=== PATIENT | female | born 1975 | race African-American/Black ===

== ENCOUNTER 2017-08-18 09:29 | Emergency (ER) | payer OTHER ==
--- NOTE | 2017-08-18 10:10 | ER Document Report ---
ED General - General Chief Complaint: Vag Bleeding, +preg <12wks Stated Complaint: VAGINAL BLEEDING Time Seen by Provider: 08/18/17 09:55 Mode of Arrival: Ambulatory Information source: Patient Notes: 41-year-old female 3 para 2 is approximately 7 weeks 6 days per ultrasound on August 12 presents with complaints of vaginal spotting. Patient denies any heavy bleeding or clots denies any abdominal pain notes symptoms started this morning TRAVEL OUTSIDE OF THE [place] IN LAST 30 DAYS: No - HPI Onset: Just prior to arrival Onset/Duration: Sudden Quality of pain: No pain Severity: Mild Pain Level: Denies Associated symptoms: Other Exacerbated by: Denies Relieved by: Denies Similar symptoms previously: No Recently seen / treated by doctor: No - Related Data Allergies/Adverse Reactions: No Known Allergies Allergy (Verified 12/09/14 11:45) Past Medical History - Social History Smoking Status: Never Smoker Cigarette use (# per day): No Chew tobacco use (# tins/day): No Smoking Education Provided: No Family History: Reviewed & Not Pertinent. denies: CAD Neurological Medical History: Reports: Hx Migraine Renal/ Medical History: Reports: Hx Ovarian Cysts - Immunizations Hx Diphtheria, Pertussis, Tetanus Vaccination: Yes Review of Systems - Review of Systems Notes: REVIEW OF SYSTEMS: CONSTITUTIONAL : Denies fever, chills, or sweats. Denies recent illness. EENT: Denies eye, ear, throat, or mouth pain or symptoms. Denies nasal or sinus congestion or discharge. Denies throat, tongue, or mouth swelling or difficulty swallowing. CARDIOVASCULAR: Denies chest pain. Denies palpitations or racing or irregular heart beat. Denies ankle edema. RESPIRATORY: Denies cough, cold, or chest congestion. Denies shortness of breath, difficulty breathing, or wheezing. GASTROINTESTINAL: Denies abdominal pain or distention. Denies nausea, vomiting , or diarrhea. Denies blood in vomitus, stools, or per rectum. Denies black, tarry stools. Denies constipation. GENITOURINARY: Denies difficulty urinating, painful urination, burning, frequency, blood in urine, or discharge. FEMALE GENITOURINARY: Admits to vaginal bleeding MUSCULOSKELETAL: Denies back or neck pain or stiffness. Denies joint pain or swelling. SKIN: Denies rash, lesions or sores. HEMATOLOGIC : Denies easy bruising or bleeding. LYMPHATIC: Denies swollen, enlarged glands. NEUROLOGICAL: Denies confusion or altered mental status. Denies passing out or loss of consciousness. Denies dizziness or lightheadedness. Denies headache. Denies weakness or paralysis or loss of use of either side. Denies problems with gait or speech. Denies sensory loss, numbness, or tingling. Denies seizures. PSYCHIATRIC: Denies anxiety or stress. Denies depression, suicidal ideation, or homicidal ideation. ALL OTHER SYSTEMS REVIEWED AND NEGATIVE. PHYSICAL EXAMINATION: GENERAL: Well-appearing, well-nourished and in no acute distress. HEAD: Atraumatic, normocephalic. EYES: Pupils equal round and reactive to light, extraocular movements intact, conjunctiva are normal. ENT: Nares patent, oropharynx clear without exudates. Moist mucous membranes. NECK: Normal range of motion, supple without lymphadenopathy LUNGS: Breath sounds clear to auscultation bilaterally and equal. No wheezes rales or rhonchi. HEART: Regular rate and rhythm without murmurs ABDOMEN: Soft, nontender, nondistended abdomen. No guarding, no rebound. No masses appreciated. Female : deferred Musculoskeletal: Normal range of motion, no pitting or edema. No cyanosis. NEUROLOGICAL: Cranial nerves grossly intact. Normal speech, normal gait. Normal sensory, motor exams PSYCH: Normal mood, normal affect. SKIN: Warm, Dry, normal turgor, no rashes or lesions noted. Dictation was performed using [employer] voice recognition software Physical Exam - Vital signs Vitals: Temp Pulse Resp BP Pulse Ox 98.8 F 84 20 130/86 H 98 08/18/17 09:49 08/18/17 09:49 08/18/17 09:49 08/18/17 09:49 08/18/17 09:49 Course - Re-evaluation Re-evalutation: 08/18/17 10:09 Patient is unsure of her blood type but has never received RhoGam, lab work imaging pending 08/18/17 15:03 Patient's lab work and ultrasound is consistent with a 7 week 6 day , small subchorionic bleed is noted the cervix is closed, heartbeat is noted as well. Findings were provided to the patient and she is very happy with this. I have given her very strict return precautions and described to her that this is still a threatened miscarriage After performing a Medical Screening Examination, I estimate there is LOW risk for ACUTE APPENDICITIS, BOWEL OBSTRUCTION, ACUTE CHOLECYSTITIS, PERFORATED DIVERTICULITIS, INCARCERATED HERNIA, PANCREATITIS, PELVIC INFLAMMATORY DISEASE, PERFORATED ULCER, ECTOPIC , or TUBO-OVARIAN ABSCESS, thus I consider the discharge disposition reasonable. Also, there is no evidence or peritonitis , sepsis, or toxicity. I have reevaluated this patient multiple times and no significant life threatening changes are noted. The patient and I have discussed the diagnosis and risks, and we agree with discharging home with close follow-up with the understanding that symptoms and presentations can change. We also discussed returning to the Emergency Department immediately if new or worsening symptoms occur. We have discussed the symptoms which are most concerning (e.g., bloody stool, fever, changing or worsening pain, vomiting) that necessitate immediate return. - Vital Signs Vital signs: Temp Pulse Resp BP Pulse Ox 98.7 F 88 16 120/75 98 08/18/17 12:39 08/18/17 12:39 08/18/17 12:39 08/18/17 12:39 08/18/17 12:39 - Laboratory Result Diagrams: 08/18/17 10:03 08/18/17 10:03 Laboratory results interpreted by me: 08/18/17 08/18/17 08/18/17 10:03 10:03 10:03 Hgb 11.1 L Hct 34.1 L MCH 26.8 L RDW 17.9 H Sodium 136.2 L Carbon Dioxide 20 L Beta HCG, Quant 784415.00 H Urine Protein 30 H Urine Urobilinogen 4.0 H Urine Ascorbic Acid 40 H - Diagnostic Test Radiology reviewed: Image reviewed - Ultrasound transvaginal pelvis consistent with 7 week 6 day , Reports reviewed Discharge - Discharge Clinical Impression: Threatened miscarriage in early Condition: Stable Disposition: HOME, SELF-CARE Instructions: Threatened Miscarriage ([facility]) Additional Instructions: Follow up with your physician tomorrow for further care or return to the ED IMMEDIATELY if symptoms worsen or new concerns occur. If you cannot afford to follow up with your primary care physician a list of low cost clinics have been provided at the end of your discharge papers as well. Prescriptions: Metoclopramide HCl [Reglan 10 mg Tablet] 1 tab PO Q6 #25 tablet
[2017-08-18 10:23] LABS: ABSOLUTE BASOPHILS # (AUTO) 0.1 10^3/uL (0.0-0.2); ABSOLUTE EOSINOPHILS # (AUTO) 0.1 10^3/uL (0.0-0.6); ABSOLUTE LYMPHOCYTES (AUTO) 1.8 10^3/uL (0.5-4.7); ABSOLUTE MONOCYTES (AUTO) 0.5 10^3/uL (0.1-1.4); ABSOLUTE NEUT (AUTO) 5.2 10^3/uL (1.7-8.2); BASOPHILS % (AUTO) 0.7 % (0-2); EOSINOPHILS % (AUTO) 0.7 % (0-6); HEMATOCRIT 34.1 % (36.0-47.0); HEMOGLOBIN 11.1 g/dL (12.0-15.5); LYMPHOCYTES % (AUTO) 23.8 % (13-45); MEAN CORPUSCULAR HEMOGLOBIN 26.8 pg (27.0-33.4); MEAN CORPUSCULAR HGB CONC 32.5 g/dL (32.0-36.0); MEAN CORPUSCULAR VOLUME 82 fl (80-97); PLATELET COUNT 371 10^3/uL (150-450); RED BLOOD COUNT 4.14 10^6/uL (3.72-5.28); RED CELL DISTRIBUTION WIDTH 17.9 % (11.5-14.0); SEGMENTED NEUTROPHILS % (AUTO) 67.8 % (42-78); TOTAL CELLS COUNTED % (AUTO) 100 %; WHITE BLOOD COUNT 7.7 10^3/uL (4.0-10.5)
[2017-08-18 10:37] LABS: ALANINE AMINOTRANSFERASE 21 U/L (9-52); ALBUMIN 4.1 g/dL (3.5-5.0); ALKALINE PHOSPHATASE 57 U/L (38-126); ANION GAP 11 (5-19); ASPARTATE AMINO TRANSFERASE 16 U/L (14-36); BILIRUBIN,DIRECT 0.3 mg/dL (0.0-0.4); BILIRUBIN,TOTAL 0.3 mg/dL (0.2-1.3); BLOOD UREA NITROGEN 9 mg/dL (7-20); CALCIUM 10.2 mg/dL (8.4-10.2); CARBON DIOXIDE 20 mmol/L (22-30); CHLORIDE 105 mmol/L (98-107); GLUCOSE 101 mg/dL (75-110); POTASSIUM 3.9 mmol/L (3.6-5.0); SODIUM 136.2 mmol/L (137-145); TOTAL PROTEIN 7.2 g/dL (6.3-8.2)
[2017-08-18 10:58] LABS: APPEARANCE,URINE SLIGHTLY-CLOUDY; BILIRUBIN,URINE NEGATIVE (NEGATIVE); GLUCOSE, URINE NEGATIVE (NEGATIVE); KETONES,URINE NEGATIVE (NEGATIVE); LEUKOCYTE ESTERASE,URINE NEGATIVE (NEGATIVE); NITRITE,URINE NEGATIVE (NEGATIVE); PROTEIN,URINE 30 mg/dL (NEGATIVE); URINE SPECIFIC GRAVITY 1.029
[2017-08-18 11:00] LABS: COLOR,URINE DARK YELLOW
--- NOTE | 2017-08-18 12:23 | RADIOLOGY REPORT (SQ) ---
EXAM DESCRIPTION: U/S OB TRANSVAGINAL W/O DOP COMPLETED DATE/TIME: 08/18/2017 12:15 pm REASON FOR STUDY: vag bleed + preg COMPARISON: None. TECHNIQUE: Transvaginal static and realtime grayscale images acquired of the pelvis. Additional annamarie cted spectral and color Doppler images recorded. All images stored on PACs. bHCG: Not available. LIMITATIONS: None. FINDINGS: FETUS: Living intrauterine . EGA: 7 weeks 6 days PATRICIA: 03/31/2018 FHR: 152 beats per minute. SUBCHORIONIC BLEED: Yes. SIZE OF BLEED: 1.7 x 2.1 x 2.1 cm UTERUS: No masses. No anomalies. CERVICAL LENGTH: 2.7 cm. Closed. RIGHT ADNEXA: Normal ovary with normal vascular flow. No adnexal free fluid. Simple cyst(s) measuring 4.5 cm. LEFT ADNEXA: Ovary not identified. No adnexal free fluid. No adnexal masses. FREE FLUID: None. OTHER: No other significant finding. IMPRESSION: LIVING INTRAUTERINE . EGA 7 weeks 6 days. Small subchronic hemorrhage. Trimester of : First - 0 to 13 weeks. TECHNICAL DOCUMENTATION: JOB ID: [id number] [employer]- All Rights Reserved Reading location - IP/workstation name: [email or web address]
[2017-08-18 12:40] VITALS: BP 120/75
== END 2017-08-18 12:40 | disposition home or self-care (01) ==
LOC: ER 09:29
DX: O20.0 Threatened abortion (principal); Z3A.00 Weeks of gestation of pregnancy not specified
CPT/HCPCS: 36415; 76817; 80053; 81001; 84702; 85025; 86900; 86901; 99284

== ENCOUNTER 2017-10-26 10:06 | Emergency (ER) | payer SELFPAY ==
--- NOTE | 2017-10-26 10:29 | ER Document Report ---
ED Medical Screen (RME) - General Chief Complaint: Shortness Of Breath Stated Complaint: SHORTNESS OF BREATH Time Seen by Provider: 10/26/17 10:25 Notes: 42-year-old female patient approximately 18 weeks . Been having increased shortness of breath over the last couple weeks. Intermittent palpitations. Feels like her heart is racing and she cannot catch her breath. Denies any leg pain. Denies any lower extremity edema. Not on any medications other than vitamins. Never had a blood clot. No prior complications with previous pregnancies. I have greeted and performed a rapid initial assessment of this patient. A comprehensive ED assessment and evaluation of the patient, analysis of test results and completion of the medical decision making process will be conducted by additional ED providers. TRAVEL OUTSIDE OF THE [place] IN LAST 30 DAYS: No - Related Data Allergies/Adverse Reactions: No Known Allergies Allergy (Verified 12/09/14 11:45) Past Medical History - General Information source: Patient - Social History Chew tobacco use (# tins/day): No Frequency of alcohol use: None Drug Abuse: None Lives with: Spouse/Significant other Family history: Reviewed & Not Pertinent - Medical History Medical History: Negative Neurological Medical History: Reports: Hx Migraine Renal/ Medical History: Reports: Hx Ovarian Cysts. Denies: Hx Peritoneal Dialysis - Immunizations Hx Diphtheria, Pertussis, Tetanus Vaccination: Yes Review of Systems - Review of Systems Constitutional: No symptoms reported EENT: No symptoms reported Cardiovascular: Palpitations, Heart racing. denies: Syncope, Dizziness, Lightheaded, Edema Respiratory: Short of breath. denies: Cough, Hurts to breathe, Hemoptysis, Wheezing Gastrointestinal: No symptoms reported Genitourinary: No symptoms reported Female Genitourinary: . denies: Heavy/abnormal periods, Irregular period, Vaginal discharge, Vaginal bleeding Musculoskeletal: denies: Back pain, Joint pain, Muscle pain, Leg swelling, Ankle swelling Skin: No symptoms reported Hematologic/Lymphatic: No symptoms reported Neurological/Psychological: denies: Confusion, Weakness, Numbness Physical Exam - Vital signs Vitals: Temp Pulse Resp BP Pulse Ox 98.8 F 100 20 135/69 H 100 10/26/17 10:12 10/26/17 10:12 10/26/17 10:12 10/26/17 10:12 10/26/17 10:12 Interpretation: Tachycardic - General General appearance: Appears well, Alert - HEENT Head: Normocephalic, Atraumatic Eyes: Normal Pupils: PERRL - Respiratory Respiratory status: No respiratory distress Chest status: Nontender Breath sounds: Normal Chest palpation: Normal - Cardiovascular Rhythm: Tachycardia Heart sounds: Normal auscultation Murmur: No - Abdominal Inspection: Normal Distension: No distension Bowel sounds: Normal Tenderness: Nontender Organomegaly: No organomegaly - Back Back: Normal, Nontender - Extremities General upper extremity: Normal inspection, Nontender, Normal color, Normal ROM , Normal temperature. No: Edema General lower extremity: Normal inspection, Nontender, Normal color, Normal ROM , Normal temperature, Normal weight bearing. No: Edema, Kimberlyn's sign - Neurological Neuro grossly intact: Yes Cognition: Normal Orientation: AAOx4 Greg Coma Scale Eye Opening: Spontaneous King Coma Scale Verbal: Oriented King Coma Scale Motor: Obeys Commands King Coma Scale Total: 15 Speech: Normal Motor strength normal: LUE, RUE, LLE, RLE Sensory: Normal - Psychological Associated symptoms: Normal affect, Normal mood - Skin Skin Temperature: Warm Skin Moisture: Dry Skin Color: Normal Course - Re-evaluation Re-evalutation: 10/26/17 10:28 At this time with tachycardia and shortness of breath approximately 18 weeks will do some basic labs, urinalysis, EKG and get bilateral lower extremity ultrasound to rule out DVT. Unlikely this represents DVT or PE however must be considered at this time. - Vital Signs Vital signs: Temp Pulse Resp BP Pulse Ox 98.8 F 100 20 135/69 H 100 10/26/17 10:12 10/26/17 10:12 10/26/17 10:12 10/26/17 10:12 10/26/17 10:12
[2017-10-26 11:32] LABS: ABSOLUTE EOSINOPHILS # (AUTO) 0.1 10^3/uL (0.0-0.6); ABSOLUTE LYMPHOCYTES (AUTO) 1.2 10^3/uL (0.5-4.7); ABSOLUTE MONOCYTES (AUTO) 0.6 10^3/uL (0.1-1.4); ABSOLUTE NEUT (AUTO) 8.3 10^3/uL (1.7-8.2); BASOPHILS % (AUTO) 0.2 % (0-2); EOSINOPHILS % (AUTO) 1.2 % (0-6); HEMATOCRIT 31.7 % (36.0-47.0); HEMOGLOBIN 10.5 g/dL (12.0-15.5); LYMPHOCYTES % (AUTO) 11.9 % (13-45); MEAN CORPUSCULAR HEMOGLOBIN 29.7 pg (27.0-33.4); MEAN CORPUSCULAR HGB CONC 33.1 g/dL (32.0-36.0); MEAN CORPUSCULAR VOLUME 90 fl (80-97); MONOCYTES % (AUTO) 5.5 % (3-13); PLATELET COUNT 312 10^3/uL (150-450); RED BLOOD COUNT 3.53 10^6/uL (3.72-5.28); RED CELL DISTRIBUTION WIDTH 16.3 % (11.5-14.0); SEGMENTED NEUTROPHILS % (AUTO) 81.2 % (42-78); TOTAL CELLS COUNTED % (AUTO) 100 %; WHITE BLOOD COUNT 10.2 10^3/uL (4.0-10.5)
[2017-10-26 11:45] LABS: ALANINE AMINOTRANSFERASE 20 U/L (9-52); ALBUMIN 3.7 g/dL (3.5-5.0); ALKALINE PHOSPHATASE 46 U/L (38-126); ANION GAP 11 (5-19); ASPARTATE AMINO TRANSFERASE 17 U/L (14-36); BILIRUBIN,DIRECT 0.2 mg/dL (0.0-0.4); BILIRUBIN,TOTAL 0.3 mg/dL (0.2-1.3); BLOOD UREA NITROGEN 7 mg/dL (7-20); CALCIUM 9.8 mg/dL (8.4-10.2); CARBON DIOXIDE 24 mmol/L (22-30); CHLORIDE 105 mmol/L (98-107); GLUCOSE 100 mg/dL (75-110); POTASSIUM 3.9 mmol/L (3.6-5.0); TOTAL PROTEIN 6.6 g/dL (6.3-8.2)
[2017-10-26 11:49] LABS: APPEARANCE,URINE CLEAR; BILIRUBIN,URINE NEGATIVE (NEGATIVE); COLOR,URINE YELLOW; GLUCOSE, URINE NEGATIVE (NEGATIVE); KETONES,URINE 20 mg/dL (NEGATIVE); LEUKOCYTE ESTERASE,URINE NEGATIVE (NEGATIVE); NITRITE,URINE NEGATIVE (NEGATIVE); PROTEIN,URINE NEGATIVE (NEGATIVE); URINE SPECIFIC GRAVITY 1.014
--- NOTE | 2017-10-26 12:35 | ER Document Report ---
ED General - General Chief Complaint: Shortness Of Breath Stated Complaint: SHORTNESS OF BREATH Time Seen by Provider: 10/26/17 10:25 Notes: Patient says that for the past 2 weeks she has been experiencing episodes of shortness of breath frequently each day. Additionally, at about the same time 2 weeks ago, patient began experiencing episodes of rapid heartbeat happening about once a day and lasting for about an hour each time. She has not had any associated chest pains, however. Patient is approximately 17 weeks in her third . She has had a runny nose over the past 2 weeks but no cough or chest congestion, just short of breath feeling. Denies any chest pains. Denies any vomiting or diarrhea. Denies fever. Denies any swelling of lower extremities and has never had any problems with blood clots. Only current medications are vitamins and iron pills. TRAVEL OUTSIDE OF THE [place] IN LAST 30 DAYS: No - Related Data Allergies/Adverse Reactions: No Known Allergies Allergy (Verified 12/09/14 11:45) Past Medical History - General Information source: Patient - Social History Smoking Status: Never Smoker Chew tobacco use (# tins/day): No Frequency of alcohol use: None Drug Abuse: None Lives with: Spouse/Significant other Family History: Reviewed & Not Pertinent. denies: CAD Patient has suicidal ideation: No Patient has homicidal ideation: No - Medical History Medical History: Negative - Past Medical History Cardiac Medical History: Denies: Hx Atrial Fibrillation, Hx Congestive Heart Failure, Hx Coronary Artery Disease, Hx DVT, Hx Hypertension, Hx Pulmonary Embolism Pulmonary Medical History: Denies: Hx Asthma Neurological Medical History: Reports: Hx Migraine Endocrine Medical History: Denies: Hx Hyperthyroidism, Hx Hypothyroidism Renal/ Medical History: Reports: Hx Ovarian Cysts Psychiatric Medical History: Denies: Hx Anxiety - Immunizations Hx Diphtheria, Pertussis, Tetanus Vaccination: Yes Review of Systems - Review of Systems Notes: REVIEW OF SYSTEMS: CONSTITUTIONAL : Denies fever. EENT: Runny nose for the past 2 months. Denies eye, ear, mouth or throat pain or other symptoms. CARDIOVASCULAR: Denies chest pain. RESPIRATORY: Denies cough, chest congestion, but has had shortness of breath, see HPI. GASTROINTESTINAL: Denies abdominal pain or nausea, vomiting, or diarrhea. GENITOURINARY: Denies difficulty or painful urinating, urinary frequency, blood in urine. MUSCULOSKELETAL: Denies back or neck pain. Denies joint pain or swelling. SKIN: Denies rash or skin lesions. NEUROLOGICAL: Denies LOC or altered mental status. Denies headache. Denies sensory loss or motor deficits. ALL OTHER SYSTEMS REVIEWED AND NEGATIVE. Physical Exam - Vital signs Vitals: Temp Pulse Resp BP Pulse Ox 98.8 F 100 20 135/69 H 100 10/26/17 10:12 10/26/17 10:12 10/26/17 10:12 10/26/17 10:12 10/26/17 10:12 Interpretation: Normal - Notes Notes: PHYSICAL EXAMINATION: GENERAL: Well-appearing, in no acute distress. Asymptomatic at this time. Vital signs normal. HEAD: Atraumatic, normocephalic. EYES: Pupils equal round and reactive to light, extraocular movements intact. ENT: oropharynx clear without exudates. Moist mucous membranes. NECK: Normal range of motion, supple. LUNGS: Breath sounds clear and equal bilaterally. HEART: Regular rate and rhythm without murmurs. ABDOMEN: Soft, nontender. No guarding or rebound. No masses. BACK: No tenderness throughout entire back. EXTREMITIES: Normal range of motion without pain. Negative Homans bilaterally. NEUROLOGICAL: Normal speech, normal gait. Normal sensory, motor, and reflex exams. Awake, alert, and oriented x3. Cranial nerves normal. PSYCH: Normal mood, normal affect. SKIN: Warm, dry, no rashes. Course - Re-evaluation Re-evalutation: 10/26/17 12:40 Patient has with her a baby monitor that records a picture of the fetus is heartbeat and she put it on herself and was able to capture a couple of episodes of this rapid heartbeat. It is quite crude, but it does appear that the patient is having some form of a regular beat SVT that looks like it is at the rate of about 150 bpm. The little monitor also produces a sound and the heartbeat sounds like it is at that approximate heart rate, as well. 10/26/17 20:08 Discussed the case with Dr. Navarrete, [facility] community association manager and Dr. Talley, cardiology community association manager. - Vital Signs Vital signs: Temp Pulse Resp BP Pulse Ox 98.8 F 100 19 117/74 93 10/26/17 10:12 10/26/17 10:12 10/26/17 14:42 10/26/17 14:43 10/26/17 14:43 - Laboratory Result Diagrams: 10/26/17 11:05 10/26/17 11:05 Laboratory results interpreted by me: 10/26/17 10/26/17 10:55 11:05 RBC 3.53 L Hgb 10.5 L Hct 31.7 L RDW 16.3 H Seg Neutrophils % 81.2 H Lymphocytes % 11.9 L Absolute Neutrophils 8.3 H Urine Ketones 20 H Urine Urobilinogen 2.0 H - EKG Interpretation by Me EKG shows normal: Sinus rhythm Rate: Normal Rhythm: NSR - At 96. Discharge - Discharge Clinical Impression: Shortness of breath due to in second trimester, Tachycardia Condition: Stable Disposition: HOME, SELF-CARE Additional Instructions: SHORTNESS OF BREATH OR DYSPNEA: You were evaluated for shortness of breath, or dyspnea. Dyspnea has many causes, and some are more serious than others. Sometimes it's impossible to diagnose the cause of dyspnea with the tests that are available on an emergency basis. Based on our evaluation today, you do not need hospitalization now. We found no evidence of pneumonia, collapsed lung, blood clots in the lung, tumors , or heart failure. Causes of non-specific dyspnea can include asthma or bronchospasm, hyperventilation, emotional distress, heart disease, emphysema, fibrosis of the lung, and stiffness of the chest wall. In healthy individuals with a single episode, it's sometimes reasonable to do nothing but wait to see if the problem occurs again. Additional tests used to evaluate dyspnea can include cardiac stress testing, echocardiography, pulmonary function testing, CAT scan of the chest, bronchoscopy or pulmonary biopsy. Return if shortness of breath persists or worsens, or if you develop chest pain, fever, cough, confusion, or fainting. NORMAL EXAM AND WORKUP: At this time, your examination and workup show no significant abnormality. No significant abnormal physical findings were noted. All laboratory, EKG, and imaging (x-ray, CT scans, ultrasound) studies that were ordered show no significant abnormality. Although your examination and all studies that were ordered showed no significant abnormal finding, there are no examinations and no studies that are 100% accurate. There is always the possibility that some abnormality could exist and not be detected with physical examination or within the limits and capabilities of laboratory and other studies. You should return or follow up as you were instructed on your visit today for further evaluation if your symptoms do not resolve. Your shortness of breath could very likely be due to your . We find no evidence of any lung problems or blood clot problems. Although it is difficult to see and tell for sure, it appears the episodes of rapid heartbeat that you are experiencing are some form of supraventricular tachycardia, narrow complex, at a rate of about 150 bpm. Beta Blockers You have been given a prescription for a beta-hayley medication. This class of drugs is used for many purposes, including angina, high blood pressure , heart rhythm disturbances, tremors, and migraines. The medication works by interfering with the effects of the sympathetic nervous system (the sympathetic system has adrenaline-like effects of constricting blood vessels, increasing heart rate, and increasing blood pressure). This medication is usually well-tolerated. However, some patients have side effects such as fatigue, depression, or dizziness. Persons with asthma may develop wheezing from this medicine. Contact your doctor if you are bothered by any side effects. Do not take any cold or allergy medication without first consulting your doctor. Do not stop the medicine without consulting your doctor, as a "rebound " worsening of your condition can result. You are being put on a low dose of metoprolol, or Lopressor, a medication that is safe to take during . I recommend you call your [facility] office Saturday morning and get scheduled for them to see you for your initial appointment in the next week or so. I also recommend you call Dr. Locke, a local pipe bender with whom I spoke about your case. He said to call his cell phone Saturday at [phone] and he will schedule you for a follow-up visit to further look into the episodes of rapid heartbeat that you are having. If you should develop an episode of the rapid heartbeat that does not go away in the usual hour that it usually takes, then return for us to reevaluate your condition. FOLLOW-UP CARE: If you have been referred to a physician for follow-up care, call the physician s office for an appointment as you were instructed or within the next two days. If you experience worsening or a significant change in your symptoms, notify the physician immediately or return to the Emergency Department at any time for re-evaluation. Prescriptions: Metoprolol Tartrate [Lopressor 25 mg Tablet] 25 mg PO DAILY #15 tab Referrals: FELICITAS TALLEY MD [ACTIVE STAFF] - 10/28/17 ALEJANDRA NAVARRETE MD [ACTIVE STAFF] - Follow up in 1 week
[2017-10-26 13:23] LABS: FREE T4 (FREE THYROXINE) 0.79 ng/dL (0.78-2.19)
[2017-10-26 13:37] LABS: THYROID STIMULATING HORMONE 1.39 uIU/mL (0.47-4.68)
--- NOTE | 2017-10-26 14:25 | RADIOLOGY REPORT (SQ) ---
EXAM DESCRIPTION: CHEST 2 VIEWS COMPLETED DATE/TIME: 10/26/2017 1:55 pm REASON FOR STUDY: Shortness of breath, 17 weeks , shield abd COMPARISON: Two-view chest 12/09/2014, 09/21/2012 EXAM PARAMETERS: NUMBER OF VIEWS: two views TECHNIQUE: Digital Frontal and Lateral radiographic views of the chest acquired. RADIATION DOSE: NA LIMITATIONS: none FINDINGS: LUNGS AND PLEURA: No opacities, masses or pneumothorax. No pleural effusion. MEDIASTINUM AND HILAR STRUCTURES: No masses or contour abnormalities. HEART AND VASCULAR STRUCTURES: Heart normal size. No evidence for failure. BONES: No acute findings. HARDWARE: None in the chest. OTHER: No other significant finding. IMPRESSION: NO ACUTE RADIOGRAPHIC FINDING IN THE CHEST. TECHNICAL DOCUMENTATION: JOB ID: [id number] [employer]- All Rights Reserved Reading location - IP/workstation name: [email or web address]
[2017-10-26] MEDS ORDERED: METOPROLOL SUCCINATE 25 MG TAB.SR.24H PO ONE (14:44)
[2017-10-26 14:45] VITALS: BP 117/74
--- NOTE | 2017-10-26 16:44 | EKG REPORT ---
SEVERITY:- BORDERLINE ECG - SINUS RHYTHM LVH BY VOLTAGE : Confirmed by: Jarvis Bear MD 26-Oct-2017 16:44:19
--- NOTE | 2017-10-27 15:49 | XCELERA REPORT ---
[address] [address] Lower Extremity Venous Evaluation Name: SAMARIA DAY Age: 42 yrs Gender: Female : 1975 Patient Status: Emergency Patient Location: ER Study Date: 10/26/2017 12:53 PM Procedure: Color flow and duplex imaging bilaterally of the veins of the lower extremities as well as the Common Femoral veins. Reason For Study: sob, 18 wk preg Ordering Physician: TANA COOPER Performed By: Jessica Steele Right Sided Venous Evaluation Normal vessel filling wall to wall, compression and augmentation as well as Colour flow down to the infrageniculate veins. Left Sided Venous Evaluation Normal vessel filling wall to wall, compression and augmentation as well as Colour flow down to the infrageniculate veins. Interpretation Summary No duplex evidence of DVT or obstruction in the bilateral lower extremities. : TANA COOPER > Daren Bowie
== END 2017-10-26 15:05 | disposition home or self-care (01) ==
LOC: ER 10:06
DX: O26.892 Other specified pregnancy related conditions, second trimester (principal); R06.02 Shortness of breath; R00.0 Tachycardia, unspecified; R09.89 Other specified symptoms and signs involving the circulatory and respiratory systems; Z3A.00 Weeks of gestation of pregnancy not specified; Z79.899 Other long term (current) drug therapy
CPT/HCPCS: 36415; 71046; 80053; 81001; 83880; 84439; 84443; 85025; 85379; 93005; 93010; 93970; 99285

== ENCOUNTER 2018-02-17 09:46 | Outpatient (CLI) | payer OTHER | END 2018-02-17 11:17 | disposition home or self-care (01) | LOC: LC 09:46 | PROVIDERS: ATTEND Obstetrics & Gynecology | PROC: 4A1HXCZ Monitoring of Products of Conception, Cardiac Rate, External Approach (ICD-10-PCS; principal; 2018-02-17) | DX: Z34.83 Encounter for supervision of other normal pregnancy, third trimester (principal) | CPT/HCPCS: 59025 ==

== ENCOUNTER 2018-02-20 11:36 | Outpatient (CLI) | payer OTHER ==
--- NOTE | 2018-02-20 11:43 | Non Stress Test Report ---
Non Stress Test Datetime Report Generated by CPN: 02/20/2018 11:43 DEMOGRAPHIC EGA NST: 34.2 INDICATION Indication for Study: Ordered by Provider; Other Indication for Study (NST) Other: NRNST MONITORING Monitor Explained: Monitor Explained; Test Explained; Patient Verbalized Understanding Time on Monitor: 02/17/2018 10:00 Time off Monitor: 02/17/2018 11:13 NST Duration: 73 NST INTERVENTIONS NST Interventions: PO Hydration Physician Notified NST: Maryan Flores, CNM reviewed strip BABY A: [id number] BABY A Movement : Present Contraction Frequency : none FHR Baseline : 140 Accelerations : 15X15 Decelerations : None Variability : Moderate 6-25bpm NST Review: Meets Criteria for Reactive NST NST Review and Verified By : YOSELIN De La Cruz Results: Reactive NST REPORT Report Trigger: Send Report
== END 2018-02-20 12:20 | disposition home or self-care (01) ==
LOC: LC 11:36
PROVIDERS: ATTEND Obstetrics & Gynecology Gynecology
PROC: 4A1HXCZ Monitoring of Products of Conception, Cardiac Rate, External Approach (ICD-10-PCS; principal; 2018-02-20)
DX: O09.523 Supervision of elderly multigravida, third trimester (principal); Z3A.34 34 weeks gestation of pregnancy
CPT/HCPCS: 59025

== ENCOUNTER 2018-02-24 09:40 | Outpatient (CLI) | payer OTHER ==
[2018-02-24 10:19] LABS: ABSOLUTE EOSINOPHILS # (AUTO) 0.1 10^3/uL (0.0-0.6); ABSOLUTE LYMPHOCYTES (AUTO) 0.9 10^3/uL (0.5-4.7); ABSOLUTE MONOCYTES (AUTO) 0.6 10^3/uL (0.1-1.4); ABSOLUTE NEUT (AUTO) 6.4 10^3/uL (1.7-8.2); BASOPHILS % (AUTO) 0.3 % (0-2); EOSINOPHILS % (AUTO) 0.7 % (0-6); HEMATOCRIT 31.5 % (36.0-47.0); HEMOGLOBIN 10.3 g/dL (12.0-15.5); LYMPHOCYTES % (AUTO) 11.3 % (13-45); MEAN CORPUSCULAR HEMOGLOBIN 29.6 pg (27.0-33.4); MEAN CORPUSCULAR HGB CONC 32.7 g/dL (32.0-36.0); MEAN CORPUSCULAR VOLUME 91 fl (80-97); MONOCYTES % (AUTO) 7.2 % (3-13); PLATELET COUNT 286 10^3/uL (150-450); RED BLOOD COUNT 3.47 10^6/uL (3.72-5.28); RED CELL DISTRIBUTION WIDTH 15.7 % (11.5-14.0); SEGMENTED NEUTROPHILS % (AUTO) 80.5 % (42-78); TOTAL CELLS COUNTED % (AUTO) 100 %
[2018-02-24 10:27] LABS: APPEARANCE,URINE CLEAR; BILIRUBIN,URINE NEGATIVE (NEGATIVE); COLOR,URINE STRAW; GLUCOSE, URINE NEGATIVE (NEGATIVE); KETONES,URINE NEGATIVE (NEGATIVE); LEUKOCYTE ESTERASE,URINE NEGATIVE (NEGATIVE); NITRITE,URINE NEGATIVE (NEGATIVE); PROTEIN,URINE NEGATIVE (NEGATIVE); URINE SPECIFIC GRAVITY 1.006; UROBILINOGEN,URINE NEGATIVE mg/dL (<2.0)
[2018-02-24 10:49] LABS: ALANINE AMINOTRANSFERASE 15 U/L (9-52); ALBUMIN 3.1 g/dL (3.5-5.0); ALKALINE PHOSPHATASE 62 U/L (38-126); ANION GAP 13 (5-19); ASPARTATE AMINO TRANSFERASE 13 U/L (14-36); BILIRUBIN,DIRECT 0.2 mg/dL (0.0-0.4); BILIRUBIN,TOTAL 0.4 mg/dL (0.2-1.3); BLOOD UREA NITROGEN 4 mg/dL (7-20); CALCIUM 9.5 mg/dL (8.4-10.2); CARBON DIOXIDE 18 mmol/L (22-30); CHLORIDE 105 mmol/L (98-107); GLUCOSE 125 mg/dL (75-110); POTASSIUM 3.8 mmol/L (3.6-5.0); SODIUM 135.6 mmol/L (137-145); TOTAL PROTEIN 5.6 g/dL (6.3-8.2)
[2018-02-24 10:56] LABS: UR PRO/CREAT RATIO RESULT 0.3 mg/mg (0.0-0.2); URINE CREATININE 40.2 mg/dL (15-278)
== END 2018-02-24 11:55 | disposition home or self-care (01) ==
LOC: LC 09:40
PROVIDERS: ATTEND Obstetrics & Gynecology
DX: Z34.93 Encounter for supervision of normal pregnancy, unspecified, third trimester (principal)
CPT/HCPCS: 36415; 59025; 80053; 81001; 82570; 83615; 84156; 84550; 85025

== ENCOUNTER 2018-02-25 23:47 | Observation (INO) | payer OTHER ==
[2018-02-26] MEDS ORDERED: ADENOSINE INJ/PF 6 MG/2 ML SDV IV ONE (00:06)
[2018-02-26] MEDS ORDERED: ASPIRIN 81 MG TABLET, CHEWABLE PO ONE (00:15)
--- NOTE | 2018-02-26 00:15 | ER Document Report ---
ED Cardiac - General Chief Complaint: Chest Pain Stated Complaint: CHEST PAIN Time Seen by Provider: 02/26/18 00:14 Mode of Arrival: Ambulatory Information source: Patient Notes: Patient presented to the emergency room with shortness of breath and chest pain which started about 2 hours ago. Patient is 35 weeks . He denies any abdominal pain, vaginal bleeding or discharge. TRAVEL OUTSIDE OF THE [place] IN LAST 30 DAYS: No - HPI Patient complains to provider of: Chest pain, Palpitations, Shortness of breath Was the onset of pain: Sudden Is the pain a: New problem Chest pain location: Substernal Quality of pain: Constant, Mild Severity now: Mild Severity at worst: Moderate Pain level currently: 2 Cardiac risk factors: None Positive cardiac history: No Associated symptoms: Palpitations, Shortness of breath Exacerbated by: Denies Relieved by: Nothing Similar symptoms previously: No Recently seen / treated by doctor: No - Related Data Allergies/Adverse Reactions: No Known Allergies Allergy (Verified 02/20/18 12:21) Past Medical History - Social History Smoking Status: Unknown if Ever Smoked Family History: Reviewed & Not Pertinent. denies: CAD - Past Medical History Cardiac Medical History: Denies: Hx Atrial Fibrillation, Hx Congestive Heart Failure, Hx Coronary Artery Disease, Hx DVT, Hx Hypertension, Hx Pulmonary Embolism Pulmonary Medical History: Denies: Hx Asthma Neurological Medical History: Reports: Hx Migraine Endocrine Medical History: Denies: Hx Hyperthyroidism, Hx Hypothyroidism Renal/ Medical History: Reports: Hx Ovarian Cysts. Denies: Hx Peritoneal Dialysis Psychiatric Medical History: Denies: Hx Anxiety - Immunizations Hx Diphtheria, Pertussis, Tetanus Vaccination: Yes Review of Systems - Review of Systems Constitutional: No symptoms reported EENT: No symptoms reported Cardiovascular: Chest pain, Palpitations Respiratory: Short of breath Gastrointestinal: No symptoms reported Genitourinary: No symptoms reported Female Genitourinary: No symptoms reported Musculoskeletal: No symptoms reported Skin: No symptoms reported Hematologic/Lymphatic: No symptoms reported Neurological/Psychological: No symptoms reported -: Yes All other systems reviewed and negative Physical Exam - Vital signs Vitals: Resp 02/26/18 00:06 Interpretation: Normal - General General appearance: Appears well, Alert - HEENT Head: Normocephalic, Atraumatic Eyes: Normal Pupils: PERRL - Respiratory Respiratory status: No respiratory distress Chest status: Nontender Breath sounds: Normal Chest palpation: Normal - Cardiovascular Rhythm: Tachycardia Heart sounds: Normal auscultation Murmur: No - Abdominal Inspection: Normal Distension: Other - Gravid Bowel sounds: Normal Tenderness: Nontender Organomegaly: No organomegaly - Back Back: Normal, Nontender - Extremities General upper extremity: Normal inspection, Nontender, Normal color, Normal ROM , Normal temperature General lower extremity: Normal inspection, Nontender, Edema, Normal color, Normal ROM, Normal temperature, Normal weight bearing. No: Kimberlyn's sign - Neurological Neuro grossly intact: Yes Cognition: Normal Orientation: AAOx4 Greenfield Coma Scale Eye Opening: Spontaneous Greg Coma Scale Verbal: Oriented Green[place] Coma Scale Motor: Obeys Commands Greenfield Coma Scale Total: 15 Speech: Normal Motor strength normal: LUE, RUE, LLE, RLE Sensory: Normal - Psychological Associated symptoms: Normal affect, Normal mood - Skin Skin Temperature: Warm Skin Moisture: Dry Skin Color: Normal Course - Vital Signs Vital signs: Temp Pulse Resp BP Pulse Ox 98.3 F 25 H 121/74 100 02/26/18 00:14 02/26/18 04:10 02/26/18 04:01 02/26/18 04:10 - Laboratory Result Diagrams: 02/26/18 00:21 02/26/18 01:35 Laboratory results interpreted by me: 02/26/18 02/26/18 02/26/18 00:21 01:35 02:18 RBC 3.47 L Hgb 10.4 L Hct 31.7 L RDW 15.6 H Sodium 136.5 L Chloride 109 H Carbon Dioxide 18 L BUN 5 L AST 13 L Total Protein 5.5 L Albumin 2.8 L Urine Ketones 20 H Ur Leukocyte Esterase MODERATE H - Diagnostic Test Radiology reviewed: Image reviewed, Reports reviewed - EKG Interpretation by Me EKG shows normal: Sinus rhythm Rate: Tachycardia Rhythm: SVT - 168 When compared to previous EKG there are: Previous EKG unavailable Additional EKG results interpreted by me: 02/26/18 00:21 Prolonged QT, LVH, No STEMI. - Consults No standard instances Time consulted: 04:00 Reason for consultation: 02/26/18 04:30 I consulted the MICROSYSTEMS ENGINEER on-call Dr. Tejada. She wants patient admitted to the hospitalist and MICROSYSTEMS ENGINEER will consult. However I called the hospitalist director of loss prevention Dr. Sima Bang. She said she is not comfortable admitting the patient because patient is 35 weeks . I called back and spoke with Dr. Tejada. She agreed to admit the patient to telemetry for observation. - Transfer of Care Notes: 02/26/18 00:29 Supraventricular tachycardia. Third trimester . Critical Care Note - Critical Care Note Total time excluding time spent on procedures (mins): 45 Comments: Multiple consultations and review of labs and x-ray. Discharge - Discharge Clinical Impression: SVT (supraventricular tachycardia), Shortness of breath, Heart palpitations, Third trimester Chest pain Qualifiers: Chest pain type: unspecified Qualified Code(s): R07.9 - Chest pain, unspecified Condition: Stable Disposition: ADMITTED OBSERVATION Admitting Provider: Dr Jaclyn Tejada Unit Admitted: Telemetry
[2018-02-26 00:31] LABS: ABSOLUTE EOSINOPHILS # (AUTO) 0.1 10^3/uL (0.0-0.6); ABSOLUTE LYMPHOCYTES (AUTO) 1.4 10^3/uL (0.5-4.7); ABSOLUTE MONOCYTES (AUTO) 0.8 10^3/uL (0.1-1.4); ABSOLUTE NEUT (AUTO) 6.8 10^3/uL (1.7-8.2); BASOPHILS % (AUTO) 0.2 % (0-2); EOSINOPHILS % (AUTO) 1.2 % (0-6); HEMATOCRIT 31.7 % (36.0-47.0); HEMOGLOBIN 10.4 g/dL (12.0-15.5); LYMPHOCYTES % (AUTO) 15.6 % (13-45); MEAN CORPUSCULAR HEMOGLOBIN 29.9 pg (27.0-33.4); MEAN CORPUSCULAR HGB CONC 32.8 g/dL (32.0-36.0); MEAN CORPUSCULAR VOLUME 91 fl (80-97); MONOCYTES % (AUTO) 9.2 % (3-13); PLATELET COUNT 291 10^3/uL (150-450); RED BLOOD COUNT 3.47 10^6/uL (3.72-5.28); RED CELL DISTRIBUTION WIDTH 15.6 % (11.5-14.0); SEGMENTED NEUTROPHILS % (AUTO) 73.8 % (42-78); TOTAL CELLS COUNTED % (AUTO) 100 %; WHITE BLOOD COUNT 9.2 10^3/uL (4.0-10.5)
[2018-02-26 00:36] LABS: INTERNATIONAL RATION (INR) 1.03
[2018-02-26] MEDS ORDERED: NORMAL SALINE 1000 ML 1,000 ML IV ONE (00:44)
--- NOTE | 2018-02-26 01:37 | RADIOLOGY REPORT (SQ) ---
EXAM DESCRIPTION: XR CHEST 1 VIEW COMPLETED DATE/TME: 02/26/2018 00:15 CLINICAL HISTORY: 42 years Female Chest pain COMPARISON: None. FINDINGS: The cardiomediastinal silhouette appears unremarkable. No consolidating infiltrates or pleural effusions. No pneumothorax. IMPRESSION: No acute abnormality is identified.
[2018-02-26 02:09] LABS: ALANINE AMINOTRANSFERASE 16 U/L (9-52); ALBUMIN 2.8 g/dL (3.5-5.0); ALKALINE PHOSPHATASE 61 U/L (38-126); ANION GAP 10 (5-19); ASPARTATE AMINO TRANSFERASE 13 U/L (14-36); BILIRUBIN,TOTAL 0.3 mg/dL (0.2-1.3); BLOOD UREA NITROGEN 5 mg/dL (7-20); CARBON DIOXIDE 18 mmol/L (22-30); CHLORIDE 109 mmol/L (98-107); GLUCOSE 104 mg/dL (75-110); POTASSIUM 3.8 mmol/L (3.6-5.0); SODIUM 136.5 mmol/L (137-145); TOTAL PROTEIN 5.5 g/dL (6.3-8.2)
[2018-02-26 02:43] LABS: APPEARANCE,URINE CLOUDY; BILIRUBIN,URINE NEGATIVE (NEGATIVE); COLOR,URINE YELLOW; GLUCOSE, URINE NEGATIVE (NEGATIVE); KETONES,URINE 20 mg/dL (NEGATIVE); LEUKOCYTE ESTERASE,URINE MODERATE (NEGATIVE); NITRITE,URINE NEGATIVE (NEGATIVE); PROTEIN,URINE NEGATIVE (NEGATIVE); URINE SPECIFIC GRAVITY 1.008; UROBILINOGEN,URINE NEGATIVE mg/dL (<2.0)
[2018-02-26 03:50] LABS: CREATINE KINASE MB 0.39 ng/mL (<4.55)
[2018-02-26 03:52] LABS: CREATINE KINASE 49 U/L (30-135)
[2018-02-26 03:58] LABS: TROPONIN I 0.055 ng/mL
--- NOTE | 2018-02-26 07:49 | PDOC H&P ---
History of Present Illness Admission Date/PCP: 02/26/18 04:39 ALEJANDRA NAVARRETE MD History of Present Illness: SAMARIA DAY is a 42 year old female @ 35 wks EGA who presented to the ER with c/o chest pain and shortness of breath. She has NO OB complaints. Patient was found to be in SVT in the ED and the providers there successfully converted her to a normal rhythm. They requested admission for observation in light of not being able to obtain Troponin results due to laboratory equipment failure. I did ask to have her admitted to the medical service in light of the fact that she was cleared from obstetric issues, however the hospitalist was not comfortable due to the patient's . The patient requires telemetry monitoring and further cardiac workup. Past Medical History Cardiac Medical History: Denies: Atrial Fibrillation, Congestive Heart Failure, Coronary Artery Disease, DVT, Hypertension, Pulmonary Embolism Pulmonary Medical History: Denies: Asthma Neurological Medical History: Reports: Migraine Endocrine Medical History: Denies: Hyperthyroidism, Hypothyroidism Past Surgical History Past Surgical History: Reports: Other - breast cyst removal Social History Information Source: Patient Lives with: Family Smoking Status: Never Smoker Frequency of Alcohol Use: None Hx Recreational Drug Use: No Drugs: None Hx Prescription Drug Abuse: No - Advance Directive Resuscitation Status: Full Code Family History Family History: Reviewed & Not Pertinent. denies: CAD Parental Family History Reviewed: Yes Children Family History Reviewed: Yes Sibling(s) Family History Reviewed.: Yes Medication/Allergy Allergies/Adverse Reactions: No Known Allergies Allergy (Verified 02/20/18 12:21) Review of Systems Constitutional: PRESENT: as per HPI Physical Exam - Physical Exam Vital Signs: Temp Pulse Resp BP Pulse Ox 98.3 F 95 17 118/77 100 02/26/18 00:14 02/26/18 06:28 02/26/18 07:25 02/26/18 07:16 02/26/18 07:25 Intake & Output 02/25/18 02/26/18 02/27/18 06:59 06:59 06:59 Weight 112.037 kg General appearance: PRESENT: no acute distress, cooperative Head exam: PRESENT: atraumatic - NST performed by L&D staff reactive. No contractions noted on tocometry GI/Abdominal exam: PRESENT: soft - gravid and nontender. Result Impressions: Chest X-Ray 02/26/18 00:15 IMPRESSION: No acute abnormality is identified. Assessment & Plan - Diagnosis (1) Chest pain Qualifiers: Chest pain type: unspecified Qualified Code(s): R07.9 - Chest pain, unspecified Is this a current diagnosis for this admission?: Yes (2) Heart palpitations Is this a current diagnosis for this admission?: Yes (3) SVT (supraventricular tachycardia) Is this a current diagnosis for this admission?: Yes (4) Shortness of breath Is this a current diagnosis for this admission?: Yes - Inpatient Certification Based on my medical assessment, after consideration of the patient's comorbidities, presenting symptoms, or acuity I expect that the services needed warrant INPATIENT care.: Yes I certify that my determination is in accordance with my understanding of Medicare's requirements for reasonable and necessary INPATIENT services [42 CFR 412.3e].: Yes Medical Necessity: Need Close Monitoring Due to Risk of Patient Decompensation - Plan Summary Plan Summary: will admit for obswrvation. Have spoken with Dr. Locke in Cardiology who requests another 12 lead EKG and will come around to see patient this am. Will do another NST this afternoon. Patient indicated that she was requested to do a 24 hour urine for protein by OB office due to one episode of hypertension earlier in the week. I did tell her not to worry about this collection and we would re-evaluate the need to repeat that testing once her current admission and evaluation is completed.
--- NOTE | 2018-02-26 07:57 | EKG REPORT ---
SEVERITY:- ABNORMAL ECG - SINUS TACHYCARDIA LEFT VENTRICULAR HYPERTROPHY : Confirmed by: Jarvis Bear MD 26-Feb-2018 07:56:41
--- NOTE | 2018-02-26 07:59 | EKG REPORT ---
SEVERITY:- ABNORMAL ECG - SUPRAVENTRICULAR TACHYCARDIA LEFT VENTRICULAR HYPERTROPHY BORDERLINE PROLONGED QT INTERVAL : Confirmed by: Jarvis Bear MD 26-Feb-2018 07:58:32
--- NOTE | 2018-02-26 12:58 | EKG REPORT ---
SEVERITY:- ABNORMAL ECG - SINUS RHYTHM LEFT VENTRICULAR HYPERTROPHY : Confirmed by: Jarvis Bear MD 26-Feb-2018 12:58:02
--- NOTE | 2018-02-26 14:00 | XCELERA REPORT ---
[address] [address] Transthoracic Echocardiogram Report Name: SAMARIA DAY Age: 42 yrs Gender: Female : 1975 Patient Status: Inpatient Patient Location: [address] [place] [address] Study Date: 02/26/2018 09:44 AM Procedure: A two-dimensional transthoracic echocardiogram with color flow and Doppler was performed. The study was technically difficult with many images being suboptimal in quality. Images were not obtained from all of the standard acoustic windows due to the limited scope of the study. Reason For Study: SVT History: SVT. Ordering Physician: CHE TALLEY Performed By: Jessica Steele Interpretation Summary The left ventricle is normal in size. There is normal left ventricular wall thickness. LV EF is > than 65% Left ventricular systolic function is normal. Doppler measurements suggest impaired left ventricular relaxation, which is associated with grade I/IV or mild diastolic dysfunction No True apical 2 chamber views obtained.Hence cannot comment on the apical anterior , the basal anterior, the basal inferior and apical inferior luu.The mid anterior , the mid inferior and the rest of the LV luu contract normally. There is no thrombus. The right ventricle is not well visualized secondary to technical limitations The right atrium is normal. The left atrial size is normal. There is no evidence of mitral valve prolapse. There is no vegetation seen on the mitral valve. There is no mitral valve stenosis. There is a trace to mild amount of mitral regurgitation There is no aortic valve stenosis There is no LVOT obstruction. No aortic regurgitation is present. There is no tricuspid stenosis. There is a mild amount of tricuspid regurgitation There is mild pulmonary hypertension by echo RVSP is 38 to 43 mm of Hg , with RA mean of 5 to 10. There is a trace amount of pulmonic regurgitation The inferior vena cava appeared normal and decreased > 50% with respiration (RAP 5-10 mmHg) There is no pericardial effusion. MMode/2D Measurements & Calculations RVDd: 3.4 cm LVIDd: 5.1 cm FS: 38.6 % Ao root diam: 2.8 cm IVSd: 0.67 cm LVIDs: 3.1 cm EDV(Teich): 121.3 ml Ao root area: 6.2 cm2 LVPWd: 0.91 cm ESV(Teich): 38.1 ml EF(Teich): 68.6 % Doppler Measurements & Calculations MV E max jailene: MV dec slope: Ao V2 max: LV V1 max P.9 cm/sec 193.9 cm/sec 4.4 mmHg MV A max jailene: 1730 cm/sec2 Ao max PG: LV V1 max: 141.4 cm/sec MV dec time: 15.0 mmHg 105.1 cm/sec MV E/A: 0.93 0.08 sec PA V2 max: PI max jailene: TR max jailene: 153.0 cm/sec 198.7 cm/sec 286.6 cm/sec PA max P.4 mmHg PI max P.8 mmHg TR max PG: PI dec slope: 32.9 mmHg 138.3 cm/sec2 Left Ventricle The left ventricle is normal in size. There is normal left ventricular wall thickness. LV EF is > than 65%. Left ventricular systolic function is normal. Doppler measurements suggest impaired left ventricular relaxation, which is associated with grade I/IV or mild diastolic dysfunction. No True apical 2 chamber views obtained.Hence cannot comment on the apical anterior , the basal anterior, the basal inferior and apical inferior luu.The mid anterior , the mid inferior and the rest of the LV luu contract normally. There is no thrombus. Right Ventricle The right ventricle is not well visualized secondary to technical limitations. Atria The right atrium is normal. The left atrial size is normal. Mitral Valve There is no evidence of mitral valve prolapse. There is no vegetation seen on the mitral valve. There is no mitral valve stenosis. There is a trace to mild amount of mitral regurgitation. Aortic Valve There is no aortic valvular vegetation. There is no aortic valve stenosis. There is no LVOT obstruction. No aortic regurgitation is present. Tricuspid Valve There is no tricuspid stenosis. There is a mild amount of tricuspid regurgitation. There is mild pulmonary hypertension by echo. RVSP is 38 to 43 mm of Hg , with RA mean of 5 to 10. Pulmonic Valve There is no pulmonic valvular stenosis. There is a trace amount of pulmonic regurgitation. Great Vessels The aortic root is normal size. The inferior vena cava appeared normal and decreased > 50% with respiration (RAP 5-10 mmHg). Effusions There is no pericardial effusion. : CHE TALLEY > Che Talley
[2018-02-26 15:03] VITALS: BP 118/53
--- NOTE | 2018-02-26 15:10 | PDOC DISCHARGE SUMMARY ---
General - Admit/Disc Date/PCP Admission Date/Primary Care Provider: 02/26/18 04:39 ALEJANDRA NAVARRETE MD Discharge Date: 02/26/18 - Discharge Diagnosis (1) SVT (supraventricular tachycardia) Is this a current diagnosis for this admission?: Yes - Additional Information Resuscitation Status: Full Code Home Medications: Ferrous Sulfate [Feosol 325 mg Tablet] 650 mg PO DAILY 02/26/18 Vit,Calc76/Iron/Folic [Prenatabs Rx Tablet] 1 tab PO DAILY 02/26/18 History of Present Illness Patient complains of: Rapid heart rate History of Present Illness: SAMARIA DAY is a 42 year old female She is at 35 wks with twins and has developed SVT. She has been evaluated by cardiology and he plans discharge home today on Lopressor. Hospital Course Hospital Course: See cardiology notes for details. From Ob standpoint her nst is reactive. Physical Exam - Physical Exam Vital Signs: Temp Pulse Resp BP Pulse Ox 98.7 F 99 16 118/53 L 100 02/26/18 13:17 02/26/18 13:17 02/26/18 13:17 02/26/18 13:17 02/26/18 13:17 Intake & Output 02/25/18 02/26/18 02/27/18 06:59 06:59 06:59 Weight 112.037 kg General appearance: PRESENT: no acute distress, well-developed, well-nourished Result Impressions: Chest X-Ray 02/26/18 00:15 IMPRESSION: No acute abnormality is identified. Plan Discharge Plan: Home on Lopressor bid and followup with OB tomorrow. Time Spent: Less than 30 Minutes
--- NOTE | 2018-02-26 18:44 | PDOC CONSULTATION ---
Consultation-Blank Consultation: CARDIOLOGY CONSULTATION by Dr. Che Porras on 02/26/2018. Patient seen at 8:30 AM on 02/26/2018. Note 60 minutes spent on this patient, with more than 50% of time spent in direct patient care. REASON FOR CONSULTATION: 36-year-old lady admitted with paroxysmal supraventricular tachycardia. HISTORY OF PRESENT ILLNESS: Patient is a 42-year-old Afro-[place] female who is 35 weeks admitted with palpitations, and in the emergency room was seen to be in supraventricular tachycardia with a ventricular rate of 168 bpm. The patient was given 1 dose of adenosine 6 mg intravenously the patient converted to sinus rhythm. At present patient is in sinus tachycardia. She denies any chest pain discomfort shortness of breath PND orthopnea. When the patient was having SVT she had no symptoms apart from palpitations. There was no dizziness near syncope or syncope. The patient states that in October 2017 came in with palpitations but by the time she reached the emergency room she had spontaneously converted to's regular rhythm. Hence at that time the diagnosis of the palpitations was not made. She denies any shortness of breath PND orthopnea. PAST SURGICAL HISTORY: History of benign cyst removed from the left breast. PAST MEDICAL HISTORY: Denies history of asthma or COPD. No history of hypertension. No history of diabetes mellitus. No history of thyroid disorder. No history of chronic kidney disease. No history of congestive heart failure. No history of congenital heart disease. No history of coronary artery disease, angina or MD. ALLERGIES: No known allergies. FAMILY HISTORY is negative for hypertension or coronary artery disease. No history of headache arrhythmias. DISPOSITION: The patient is a full code, her is a surrogate healthcare decision maker. REVIEW OF SYMPTOMS: Constitutional: Denies any fever chills or rigors. Denies any generalized fatigue or weakness. HEAD: No history of head injury, and no recent headaches although she has a history of migraine. EYES: No history of amblyopia diplopia. No history of amaurosis fugax. YEARS: No history of tinnitus. No history of vertigo. No history of hearing loss. NOSE: No history of hayfever. No history of nosebleeds. MOUTH: No history of altered taste sensation. No ulcers in the mouth no bleeding from the gums. THROAT: No history of odynophagia or dysphagia. No recurrent sore throats. SKIN: No history of pruritus no history of yellowish discoloration of the skin. NECK: No history of goiter. No history of neck pain. No history of swelling in the neck. LUNGS: No history of asthma COPD. No cough or sputum production no history of pulmonary embolism. No history of sleep apnea. No history of pleuritic chest pain no symptoms of upper or lower respiratory tract infections no hemoptysis. CARDIAC: History of palpitations in October most likely secondary to SVT. Patient with recurrence of SVT this admission with symptoms of palpitations. Converted to sinus rhythm. No syncope. No PND orthopnea no leg edema. No history of coronary artery disease. No history of congenital heart disease. No history of congestive heart failure. GI: No history of GERD no history of peptic ulcer disease. No history of jaundice. No history of fatty food intolerance. No history of GI bleed. No history of abdominal pain. MUSCULOSKELETAL: Denies arthritis or collagen vascular disease. RENAL: No history of chronic kidney disease. No symptoms of UTI. No hematuria pyuria or dysuria. ENDOCRINE: No history of diabetes mellitus. No history of polydipsia polyuria. No history of thyroid disease. No history of heat or cold intolerance. No history of excessive sweating. No history of hirsutism. OB/ CORRECTIVE THERAPY AIDE: Patient is 35 weeks . No complications of . CRIME LAB TECHNICIAN: Denies history of TIA or CVA. No history of seizures. History of migraines. No recent symptoms of migraine. No history of gait imbalance. No history of sleep apnea. PSYCHIATRIC: No history of homicidal or suicidal ideation. No history of anxiety or depression. HEMATOLOGICAL.: No history of bleeding diathesis no history of clotting disorders. VASCULAR: No history of calf or buttock claudication. No history of DVT. On examination the patient is pleasant in no acute distress she is well-groomed she is mildly only to moderately obese. Selected Entries 02/26/18 08:17 Temperature 98.7 F Pulse Rate 109 H Respiratory 16 Rate Blood Pressure 116/56 L Blood Pressure 76 Mean BP Location Right Arm BP Position Supine O2 Sat by Pulse 99 Oximetry Oxygen Delivery Room Air Method HEAD: Head is atraumatic normocephalic. EYES: Pupils are equal round regular reactive to light accommodation. Extraocular movements are normal. There is no palatal pallor, there is no scleral icterus. EARS: Tympanic membranes are intact. External auditory canals are clear. There is no lesions of the pinna. NOSE: There is no deviated nasal septum. There is no inflammation of the nasal mucous membrane. MOUTH: Mucous membranes of the mouth are moist tongue is moist. There is no ulcers. There is no bleeding from the gums. THROAT: There is no redness of the oropharynx, and no exudates in throat. SKIN: There is no ecchymosis or petechia. There is no skin lesions or skin rashes. NECK: Is supple there is no JVD. Carotids are equal there is no bruit. LUNGS: Is clear to auscultation percussion without any rhonchi rales or wheezing. There is no chest wall tenderness. HEART: S1-S2 is heard there is no S3 gallop there is no S4 gallop the systolic murmur in the left sternal border and apex without radiation. There is no rub. ABDOMEN: Soft. Bowel sounds well heard. There is no hepatosplenomegaly. There is a gravid uterus. EXTREMITIES: Femorals are diminished. There is no femoral bruits. Leg pulses are well felt. There is no pedal edema. There is no DVT or cellulitis. There is no calf tenderness. There is no sinus or clubbing. CRIME LAB TECHNICIAN: Patient is conscious awake alert oriented x3 with no focal deficits. PSYCHIATRIC: The patient's judgment and insight are intact her affect is normal. LABORATORY RESULTS: 02/26/18 02/26/18 02/26/18 00:21 00:21 01:35 WBC 9.2 Hgb 10.4 L Hct 31.7 L Plt Count 291 PT 14.0 INR 1.03 Sodium 136.5 L Potassium 3.8 Chloride 109 H Carbon Dioxide 18 L Anion Gap 10 BUN 5 L Creatinine 0.52 Est GFR ( Amer) > 60 Glucose 104 Calcium 9.0 Total Bilirubin 0.3 Direct Bilirubin 0.0 Neonat Total Bilirubin Not Reportable Neonat Direct Bilirubin Not Reportable Neonat Indirect Bili Not Reportable AST 13 L ALT 16 Alkaline Phosphatase 61 Creatine Kinase 49 CK-MB (CK-2) Troponin I Total Protein 5.5 L Albumin 2.8 L 02/26/18 02/26/18 01:35 04:12 WBC Hgb Hct Plt Count PT INR Sodium Potassium Chloride Carbon Dioxide Anion Gap BUN Creatinine Est GFR ( Amer) Glucose Calcium Total Bilirubin Direct Bilirubin Neonat Total Bilirubin Neonat Direct Bilirubin Neonat Indirect Bili AST ALT Alkaline Phosphatase Creatine Kinase CK-MB (CK-2) 0.39 Troponin I 0.055 0.069 Total Protein Albumin Home Meds Table Ferrous Sulfate [Feosol 325 mg Tablet] 650 mg PO DAILY 02/26/18 Vit,Calc76/Iron/Folic [Prenatabs Rx Tablet] 1 tab PO DAILY 02/26/18 DIAGNOSTICS: Patient's EKG shows initially the EKG shows SVT, with a rate of 168 bpm LVH by voltage. Subsequent EKG shows sinus tachycardia. LVH by voltage no acute changes. ECHO: No true apical 2 chamber views obtained. Hence cannot comment on the apical inferior, basal inferior, the apical anterior, and the basal anterior luu. The rest of the LV luu contract normally LV ejection fraction is normal. There is trace mitral regurgitation without mitral stenosis or mitral prolapse. There is mild tricuspid regurgitation with mild pulmonary hypertension. No pericardial effusion. CHEST X-ray is negative for any acute pathology. IMPRESSION/RECOMMENDATION: 1. Paroxysmal supraventricular tachycardia. Would recommend starting the patient on metoprolol 25 mg p.o. every 12 hours if okay with the EQUIPMENT STERILIZER. This was been discussed with Dr. Elias the EQUIPMENT STERILIZER liaison officer. Earlier discussed the case with attending physician Dr. Tejada. For completeness of record will order a TSH. 2. 35 weeks . Note patient medications have been reviewed we will continue the patient's and iron supplementation along with the recommendation to add metoprolol 25 mg p.o. twice daily if okay with EQUIPMENT STERILIZER. Medical decision making is of moderate to high complexity. Discussed the case with attending physician. Patient stable to be discharged. Patient has my cell phone number to call me. Will arrange for the patient to most likely see me next week in the office or my partner. Echo findings were discussed with the patient patient 's . Will sign off the case, and follow the patient as an outpatient. Thanking you for allowing me to participate in the care of this patient.
[2018-02-26] MEDS ORDERED: METOPROLOL TARTRATE 25 MG TABLET PO SCH (22:00)
== END 2018-02-26 15:42 | disposition home or self-care (01) ==
LOC: ER 23:47 → EH 02-26 04:39 → 3N 02-26 07:46
PROVIDERS: ADMIT Obstetrics & Gynecology; ATTEND Obstetrics & Gynecology
DX: O99.413 Diseases of the circulatory system complicating pregnancy, third trimester (principal); I47.1 Supraventricular tachycardia; I27.20 Pulmonary hypertension, unspecified; I07.1 Rheumatic tricuspid insufficiency; O30.003 Twin pregnancy, unspecified number of placenta and unspecified number of amniotic sacs, third trimester; Z3A.35 35 weeks gestation of pregnancy
CPT/HCPCS: 93005 ×3; 99291; 96360; 36415; 82553; 82550; 84443; 85025; 85610; 80053; 81001; 84484; 93306; 71045; 93010 ×2; G0378; J7030

== ENCOUNTER 2018-02-27 10:28 | Outpatient (CLI) | payer OTHER ==
--- NOTE | 2018-02-27 10:45 | Non Stress Test Report ---
Non Stress Test Datetime Report Generated by CPN: 02/27/2018 10:44 DEMOGRAPHIC EGA NST: 35.2 INDICATION Indication for Study: Ordered by Provider MONITORING Monitor Explained: Monitor Explained; Test Explained; Patient Verbalized Understanding Time on Monitor: 02/24/2018 09:54 Time off Monitor: 02/24/2018 11:48 NST Duration: 114 NST INTERVENTIONS NST Interventions: PO Hydration; Reposition Patient Physician Notified NST: C.Anaya, CNM BABY A: [id number] BABY A Movement : Present Contraction Frequency : None FHR Baseline : 140 Accelerations : 15X15 Decelerations : None Variability : Moderate 6-25bpm NST Review: Meets Criteria for Reactive NST NST Review and Verified By : YOSELIN Rogel Results: Reactive NST REPORT Report Trigger: Send Report
--- NOTE | 2018-02-27 11:17 | Non Stress Test Report ---
Non Stress Test Datetime Report Generated by CPN: 02/27/2018 11:17 DEMOGRAPHIC EGA NST: 35.5 INDICATION Indication for Study: Ordered by Provider Indication for Study (NST) Other: repeat NST VITAL SIGNS Temperature - NST: 97.5 Pulse - NST: 100 RESP - NST: 18 NBPSYS NST: 107 NBPDIA NST: 59 MONITORING Monitor Explained: Monitor Explained; Test Explained; Patient Verbalized Understanding Time on Monitor: 02/27/2018 10:44 Time off Monitor: 02/27/2018 11:09 NST Duration: 25 NST INTERVENTIONS NST Interventions: PO Hydration Physician Notified NST: Dr Duran BABY A Movement : Present Contraction Frequency : 0 FHR Baseline : 135 Accelerations : 15X15 Decelerations : None Variability : Moderate 6-25bpm NST Review: Meets Criteria for Reactive NST NST Review and Verified By : Betty Camp RNC NST Results: Reactive NST REPORT Report Trigger: Send Report
== END 2018-02-27 11:13 | disposition home or self-care (01) ==
LOC: LC 10:28
PROVIDERS: ATTEND Student in an Organized Health Care Education/Training Program
PROC: 4A1HXCZ Monitoring of Products of Conception, Cardiac Rate, External Approach (ICD-10-PCS; principal; 2018-02-27)
DX: Z34.93 Encounter for supervision of normal pregnancy, unspecified, third trimester (principal)
CPT/HCPCS: 59025

== ENCOUNTER 2018-03-20 17:59 | Inpatient (IN) | payer OTHER ==
[2018-03-20 18:45] LABS: ABSOLUTE MONOCYTES (AUTO) 0.8 10^3/uL (0.1-1.4); ABSOLUTE NEUT (AUTO) 7.6 10^3/uL (1.7-8.2); BASOPHILS % (AUTO) 0.1 % (0-2); EOSINOPHILS % (AUTO) 0.5 % (0-6); HEMATOCRIT 31.6 % (36.0-47.0); HEMOGLOBIN 10.3 g/dL (12.0-15.5); LYMPHOCYTES % (AUTO) 11.1 % (13-45); MEAN CORPUSCULAR HEMOGLOBIN 29.8 pg (27.0-33.4); MEAN CORPUSCULAR HGB CONC 32.7 g/dL (32.0-36.0); MEAN CORPUSCULAR VOLUME 91 fl (80-97); MONOCYTES % (AUTO) 8.1 % (3-13); PLATELET COUNT 277 10^3/uL (150-450); RED BLOOD COUNT 3.47 10^6/uL (3.72-5.28); RED CELL DISTRIBUTION WIDTH 15.7 % (11.5-14.0); SEGMENTED NEUTROPHILS % (AUTO) 80.2 % (42-78); TOTAL CELLS COUNTED % (AUTO) 100 %; WHITE BLOOD COUNT 9.5 10^3/uL (4.0-10.5)
[2018-03-20] MEDS ORDERED: DINOPROSTONE 10 MG VAGINAL INSERT.SR ONE (18:53)
[2018-03-20 18:54] LABS: APPEARANCE,URINE SLIGHTLY-CLOUDY; BILIRUBIN,URINE NEGATIVE (NEGATIVE); COLOR,URINE YELLOW; GLUCOSE, URINE NEGATIVE (NEGATIVE); KETONES,URINE TRACE mg/dL (NEGATIVE); LEUKOCYTE ESTERASE,URINE NEGATIVE (NEGATIVE); NITRITE,URINE NEGATIVE (NEGATIVE); PROTEIN,URINE 100 mg/dL (NEGATIVE); URINE SPECIFIC GRAVITY 1.018
[2018-03-20] MEDS ORDERED: DINOPROSTONE 10 MG VAGINAL INSERT.SR PV PRN (18:58)
[2018-03-20 19:02] LABS: ALANINE AMINOTRANSFERASE 10 U/L (9-52); ALBUMIN 3.2 g/dL (3.5-5.0); ALKALINE PHOSPHATASE 73 U/L (38-126); ANION GAP 13 (5-19); ASPARTATE AMINO TRANSFERASE 14 U/L (14-36); BILIRUBIN,TOTAL 0.2 mg/dL (0.2-1.3); BLOOD UREA NITROGEN 4 mg/dL (7-20); CALCIUM 9.6 mg/dL (8.4-10.2); CARBON DIOXIDE 17 mmol/L (22-30); CHLORIDE 106 mmol/L (98-107); GLUCOSE 134 mg/dL (75-110); POTASSIUM 3.8 mmol/L (3.6-5.0); SODIUM 136.2 mmol/L (137-145); TOTAL PROTEIN 6.1 g/dL (6.3-8.2); URIC ACID 5.4 mg/dL (2.5-7.0)
[2018-03-20 19:13] LABS: URINE AMPHETAMINES SCREEN NEGATIVE; URINE BARBITURATES SCREEN NEGATIVE; URINE BENZODIAZEPINES SCREEN NEGATIVE; URINE COCAINE SCREEN NEGATIVE; URINE MARIJUANA (THC) SCREEN NEGATIVE; URINE METHADONE SCREEN NEGATIVE; URINE PHENCYCLIDINE SCREEN NEGATIVE
[2018-03-20] MEDS ORDERED: ACETAMINOPHEN 325 MG TABLET PO PRN (19:29)
[2018-03-20] MEDS ORDERED: MAG HYDROX/AL HYDROX/SIMETH SUSP 30 ML UDCUP PO PRN (19:29)
[2018-03-20] MEDS ORDERED: ZOLPIDEM TARTRATE 5 MG TABLET PO PRN (19:29)
[2018-03-21] MEDS ORDERED: OXYTOCIN/NORMAL SALINE 20 UNIT/1,000 ML RTUINJ IV PRN (07:00)
[2018-03-21] MEDS: RINGERS SOLUTION,LACTATED 1,000 ML IV PRN (08:30)
--- NOTE | 2018-03-21 08:47 | Admission Physical ---
Datetime Report Generated by CPN: 03/21/2018 08:47 CURRENT ADMISSION Hx Assessment: The History has been Updated Chief Complaint: Scheduled Induction of Labor Indication for Induction: Gestational HTN Indication for Induction- Other: advanced maternal age Admit Impression : Induction of Labor Admit Impression- Other: GBS+ Admit Plan: Admit to Unit ALLERGIES Medication Allergies: No Medication Allergies: No Known Allergies (03/20/2018) Latex: No Latex Allergies Food Allergies: N/A Environmental Allergies: N/A OBSTETRICAL HISTORY EDC: 03/29/2018 00:00 : 3 Para: 2 Term: 2 : 0 SAB: 0 IAB: 0 Ectopic: 0 Livin Cesareans: 0 VBACs: 0 Multiple Births: 0 Gestational Diabetes: No Rh Sensitization: No Incompetent Cervix: No AASHISH: No Infertility: No ART Treatment: No Uterine Anomaly: No IUGR: No Hx Previous C/S: No Macrosomia: No Hx Loss/Stillborn: No PIH: No Hx : No Placenta Previa/Abruption: No Depression/PP Depression: No PTL/PROM: No Post Hemorrhage: No Current Procedures: Ultrasound; NST Obstetrical History Comments: G1 1997 41wks 8lbs 5oz Boy G2 2012 41wks 8lb 4oz girl G3 - Current SEE RECORDS Alcohol: No Marijuana : No Cocaine: No Other Illicit Drugs: No Cigarettes: Never Smoker. [id number] MEDICAL HISTORY Diabetes: No Blood Transfusion: No Pulmonary Disease (Asthma, TB): No Breast Disease: No Hypertension: Yes Hotel Valet Attendant Surgery: No Heart Disease: No Hosp/Surgery: Yes Autoimmune Disorder: No Anesthetic Complications: No Kidney Disease: No Abnormal Pap Smear: Yes Neuro/Epilepsy: No Psychiatric Disorders: No Other Medical Diseases: No Hepatitis/Liver Disease: No Significant Family History: No Varicosities/Phlebitis: No Trauma/Violence : No Thyroid Dysfunction: No Medical History Comments: Abnormal pap in 2012, benign cyst on left breast removed INFECTIOUS HISTORY Gonorrhea: No Genital Herpes: No Chlamydia: No Tuberculosis: No Syphilis: No Hepatitis: No HIV/AIDS Exposure: No Rash or Viral Illness: No HPV: No PHYSICAL EXAM General: Normal HEENT: Normal Neurologic: Normal Thyroid: Normal Heart: Normal Lungs: Normal Breast: Normal Back: Normal Abdomen: Normal Genitourinary Exam: Normal Extremities: Normal DTRs: Normal Pelvic Type: Adequate Vital Signs: Reviewed MEMBRANES Membranes: Intact FETUS A EGA: 38.6 Monitoring: External US FHR- Baseline: 140 Variability: Moderate 6-25bpm Accelerations: 15X15 Decelerations: None FHR Category: Category III Admit Comment: Pt here overnight for Cervidil IOL. Pt doing well this morning. Denies headache. s/p cervidil, waiting to eat breakfast this morning. Dr Duran is the attending MD today. Plan to place Ring Catheter in the cervix after breakfast to continue with cervical ripening PLANS FOR LABOR AND DELIVERY Labor and Delivery: None Pain Management: Natural Feeding Preference: Formula Benefit of Breast Feed Discussed: Yes Circumcision: N/A INFORMED CONSENT Assignment: Roopa Duran MD Signature: with User ID: Theresa : with User ID: Theresa
[2018-03-21] MEDS ORDERED: MISOPROSTOL 0.2 MG TABLET ONE (10:23)
[2018-03-21] MEDS ORDERED: OXYTOCIN/NORMAL SALINE 20 UNIT/1,000 ML RTUINJ ONE (10:24)
[2018-03-21] MEDS ORDERED: LIDOCAINE 1% INJ-PF (10 MG/ML) 30 ML SDV ONE (10:24)
[2018-03-21] MEDS ORDERED: PENICILLIN G-K 5 MILLION UNIT VIAL ONE ×3 (12:51→21:11)
--- NOTE | 2018-03-21 15:30 | L&D Progress Notes ---
PROGRESS NOTES Datetime Report Generated by CPN: 03/21/2018 15:30 PROGRESS NOTE Impression: Reassuring Heart Rate Procedures: Sterile Vag Exam Plan: Induction Plan Other: Pt on Pitocin right now, s/p Cervidil overnight for IOL Vital Signs : Reviewed; Within Normal Limits Comment: Pt becoming uncomfortable with contractions, no cervical change has been made thus far. GBS+ w/ PCN x 1 dose given. May allow pt to take a break and eat dinner. then continue with IOL overnight. VAGINAL EXAM Dilatation: 2-3 Effacement: 50 Station: -3 Contractions: q2-3 MEMBRANES Membranes: Intact Membranes: Intact FETUS A FHR - Baseline: 140 Monitoring: External US Variability: Moderate 6-25bpm Accelerations: 15X15 Decelerations: None SIGNATURE SIGNATURE: [id number];14,[id number];13,[id number] SIGNATURE: 13,[id number];14,[id number] SIGNATURE: 14,[id number] SIGNATURE: 14,[id number] SIGNATURE: 14,[id number] Assignment: Roopa Duran MD Signature: with User ID: [email or web address] : with User ID: Theresa
[2018-03-22] MEDS: RINGERS SOLUTION,LACTATED 1,000 ML IV PRN ×2 (01:06→07:00)
[2018-03-22] MEDS ORDERED: PENICILLIN G-K 5 MILLION UNIT VIAL ONE ×3 (02:25→10:36)
[2018-03-22] MEDS ORDERED: FENTANYL CITRATE INJ/PF 100 MCG/2 ML AMPUL ONE (05:13)
[2018-03-22] MEDS ORDERED: PHENYLEPHRINE HCL INJ/PF 10 MG/1 ML SDV ONE (05:13)
[2018-03-22] MEDS ORDERED: EPHEDRINE SULFATE INJ 50 MG/1 ML AMPULE ONE (05:14)
[2018-03-22] MEDS ORDERED: FENTANYL/BUPIVACAINE/NS/PF 300 MCG/150 ML RTUINJ EPI ONE (05:14)
[2018-03-22] MEDS ORDERED: BUPIVACAINE HCL 0.5 % INJ/PF 30 ML SDV ONE (05:14)
[2018-03-22 05:46] LABS: ABSOLUTE BASOPHILS # (AUTO) 0.1 10^3/uL (0.0-0.2); ABSOLUTE MONOCYTES (AUTO) 0.7 10^3/uL (0.1-1.4); ABSOLUTE NEUT (AUTO) 8.2 10^3/uL (1.7-8.2); BASOPHILS % (AUTO) 0.6 % (0-2); EOSINOPHILS % (AUTO) 0.4 % (0-6); HEMATOCRIT 31.9 % (36.0-47.0); HEMOGLOBIN 10.3 g/dL (12.0-15.5); LYMPHOCYTES % (AUTO) 9.9 % (13-45); MEAN CORPUSCULAR HEMOGLOBIN 29.3 pg (27.0-33.4); MEAN CORPUSCULAR HGB CONC 32.4 g/dL (32.0-36.0); MEAN CORPUSCULAR VOLUME 90 fl (80-97); MONOCYTES % (AUTO) 7.3 % (3-13); PLATELET COUNT 199 10^3/uL (150-450); RED BLOOD COUNT 3.53 10^6/uL (3.72-5.28); RED CELL DISTRIBUTION WIDTH 15.9 % (11.5-14.0); SEGMENTED NEUTROPHILS % (AUTO) 81.8 % (42-78); TOTAL CELLS COUNTED % (AUTO) 100 %
[2018-03-22 06:04] LABS: ALANINE AMINOTRANSFERASE 13 U/L (9-52); ALBUMIN 3.2 g/dL (3.5-5.0); ALKALINE PHOSPHATASE 74 U/L (38-126); ANION GAP 14 (5-19); ASPARTATE AMINO TRANSFERASE 20 U/L (14-36); BILIRUBIN,DIRECT 0.3 mg/dL (0.0-0.4); BILIRUBIN,TOTAL 0.6 mg/dL (0.2-1.3); BLOOD UREA NITROGEN 4 mg/dL (7-20); CALCIUM 9.7 mg/dL (8.4-10.2); CARBON DIOXIDE 17 mmol/L (22-30); CHLORIDE 107 mmol/L (98-107); GLUCOSE 87 mg/dL (75-110); POTASSIUM 4.3 mmol/L (3.6-5.0); SODIUM 137.9 mmol/L (137-145); TOTAL PROTEIN 6.1 g/dL (6.3-8.2); URIC ACID 5.8 mg/dL (2.5-7.0)
[2018-03-22] MEDS ORDERED: FERROUS SULFATE 325 MG TABLET PO SCH (10:00)
[2018-03-22] MEDS ORDERED: METOPROLOL TARTRATE 25 MG TABLET PO SCH (10:00)
[2018-03-22] MEDS ORDERED: PENICILLIN G POTASSIUM 5,000,000 UNIT in DEXTROSE 5%-WATER 100 ML IV ONE (10:44)
[2018-03-22] MEDS ORDERED: OXYTOCIN/NORMAL SALINE 20 UNIT/1,000 ML RTUINJ ONE (11:46)
[2018-03-22] MEDS ORDERED: METHYLERGONOVINE MALEATE INJ/PF 0.2 MG/1 ML AMPULE ONE (11:47)
[2018-03-22] MEDS ORDERED: CEFAZOLIN 2 GM/D5W RTU 2 GM/50 ML RTUPB IV ONE (13:23)
[2018-03-22] MEDS ORDERED: IBUPROFEN 800 MG TABLET ONE (13:45)
[2018-03-22] MEDS ORDERED: PENICILLIN G POTASSIUM 2,500,000 UNIT in DEXTROSE 5%-WATER 50 ML IV SCH (14:44)
[2018-03-22] MEDS ORDERED: MEASLES,MUMPS&RUBELLA VACC/PF 0.5 ML VIAL SUBCUT PRN (15:14)
[2018-03-22] MEDS ORDERED: OXYTOCIN/NORMAL SALINE 1,000 ML IV PRN (15:14)
[2018-03-22] MEDS ORDERED: DIPH/PERTUSS(ACELL)/TETANUS VAC/PF 0.5 ML SYR (>=10YO) IM PRN (15:14)
[2018-03-22] MEDS ORDERED: DIBUCAINE 1% OINTMENT 28 GM TP PRN (15:14)
[2018-03-22] MEDS ORDERED: ACETAMINOPHEN WITH CODEINE #3 TABLET PO PRN ×2 (15:14)
[2018-03-22] MEDS ORDERED: ZOLPIDEM TARTRATE 5 MG TABLET PO PRN (15:14)
[2018-03-22] MEDS ORDERED: BENZOCAINE/MENTHOL AEROSOL SPRAY 56 ML TOP PRN (15:14)
--- NOTE | 2018-03-22 16:36 | Delivery Summary ---
Del Sum A-C Datetime Report Generated by CPN: 03/22/2018 16:36 DELIVERY PERSONNEL DELIVERY PERSONNEL: [id number] Delivery Doctor:: Dr. Bola Bansal MD Labor and Delivery Nurse:: Nadya Sarkar RNclipper automatic Nurse:: Paris Rossi RN Toppiece Chopper/RIVET DRIVER: Felicia Maldonadoa, ST MATERNAL INFORMATION Delivery Anesthesia: Epidural Medications After Delivery: Pitocin Drip 20 Units/1000ml NSS Meds After Delivery Comment: 2 grams ancef Estimated Blood Loss (ml): 400 Maternal Complications: None Provider Comments: Normal spontaneous vginal delivery of a female , Apgars 8/9, weight pending over superficial laceration, Repaired with 2 interrupted sutures of 3-0 Chromic. Placenta manually removed. Patient tolerated procedure well. LABOR SUMMARY EDC: 03/29/2018 00:00 No. Babies in Womb: 1 Attempted: No Labor Anesthesia: Epidural LABOR INFORMATION Reason for Induction: Gestational Hypertension Reason for Induction- Other: advanced maternal age Onset of Labor: 03/21/2018 12:02 Complete Dilatation: 03/22/2018 12:54 Cervical Ripening Agents: Cervidil Oxytocin: Induction Group B Beta Strep: positive Antibiotics # of Doses: 6 Antibiotics Time of Last Dose: 1045 (Annotations: Data stored by N on behalf of user) Name of Antibiotic Given: Penicillin Steroids Given: None Reason Steroids Not Administered: Not Applicable MEMBRANES Membranes Rupture Method: Artificial Rupture of Membranes: 03/21/2018 18:30 Length of Rupture (hr): 18.75 Amniotic Fluid Color: Clear Amniotic Fluid Amount: Small Amniotic Fluid Odor: Normal STAGES OF LABOR Stage 1 hr: 24 Stage 1 min: 52 Stage 2 hr: 0 Stage 2 min: 21 Stage 3 hr: 0 Stage 3 min: 5 Total Time in Labor hr: 25 Total Time in Labor min: 18 VAGINAL DELIVERY Episiotomy: None Laceration #1: Vaginal Laceration Extension #1: First Degree Laceration Repair: Yes Laceration Repair Note: Two interrupted suturesof 3-0 Chromic Sponge Count Correct: Yes Sharps Count Correct: Yes CSECTION DELIVERY Primary Indication: N/A Secondary Indication: N/A CSection Incidence: N/A Labor: N/A Elective: N/A CSection Incision: N/A BABY A INFORMATION Delivery Date/Time: 03/22/2018 13:15 Method of Delivery: Vaginal Born in Route : No : N/A Forceps: N/A Vacuum Extraction: N/A Shoulder Dystocia : No PRESENTATION/POSITION BABY A Presentation: Cephalic Cephalic Presentation: Vertex Vertex Position: Left Occipital Anterior Breech Presentation: N/A PLACENTA INFORMATION BABY A Placenta Delivery Time : 03/22/2018 13:20 Placenta Method of Delivery: Manual Removal Placenta Status: Delivered SCORES BABY A Heart Rate 1 min: >100 bpm Resp Effort 1 min: Good Cry Reflex Irritability 1 min: Cough or Sneeze or Pulls Away Muscle Tone 1 min: Active Motion Color 1 min: Blue/Pale Resuscitation Effort 1 min: Tactile Stimulation SCORE 1 MIN: 8 Heart Rate 5 min: >100 bpm Resp Effort 5 min: Good Cry Reflex Irritability 5 min: Cough or Sneeze or Pulls Away Muscle Tone 5 min: Active Motion Color 5 min: Body [place], Extremities Blue Resuscitation Effort 5 min: N/A SCORE 5 MIN: 9 INFANT INFORMATION BABY A Gestational Age at Delivery: 39.0 Gestational Status: Full Term- 39- 40.6 Weeks Outcome : Liveborn Infant Condition : Stable Infant Sex: Female IDENTIFICATION BABY A Infant Verification Date/Time: 03/22/2018 14:36 ID Band Number: [id number] Mother's Name Verified: Yes RN Verifying Infant: H. Flo, RN and B. Baidy, RN WEIGHT/LENGTH BABY A Birthweight (gm): 3590 Weight (lb): 7 Infant Weight (oz): 15 Infant Length (in): 21.00 Infant Length (cm): 53.34 CORD INFORMATION BABY A No. Cord Vessels: 3 Nuchal Cord : N/A Cord Blood Taken: Yes-For Storage (Mom's Blood type +) Suction: Mouth ASSESSMENT BABY A Complications: None Physical Findings at Delivery: Within Normal Limits Infant Respirations: Appears Normal Skin to Skin: Yes Skin to Skin Time (min): 60 Medical Laboratory Assistant/ALS Called : No Care By: H Flo RN Transferred To: Remains with Mother BABY B INFORMATION : N/A SIGNATURES Signature: with User ID: [email or web address] : I was personally available for consultation and serving as supervising physician for the MLP.
[2018-03-22] MEDS: DOCUSATE SODIUM 100 MG CAPSULE PO SCH (17:56)
[2018-03-22] MEDS: FERROUS SULFATE 325 MG TABLET PO SCH (17:56)
[2018-03-22] MEDS: IBUPROFEN 800 MG TABLET PO SCH (21:47)
[2018-03-23] MEDS: IBUPROFEN 800 MG TABLET PO SCH ×3 (06:11→22:15)
[2018-03-23 07:54] LABS: HEMATOCRIT 29.4 % (36.0-47.0); HEMOGLOBIN 9.4 g/dL (12.0-15.5); MEAN CORPUSCULAR HEMOGLOBIN 29.3 pg (27.0-33.4); MEAN CORPUSCULAR HGB CONC 32.1 g/dL (32.0-36.0); MEAN CORPUSCULAR VOLUME 91 fl (80-97); PLATELET COUNT 249 10^3/uL (150-450); RED BLOOD COUNT 3.22 10^6/uL (3.72-5.28); RED CELL DISTRIBUTION WIDTH 15.9 % (11.5-14.0); WHITE BLOOD COUNT 13.1 10^3/uL (4.0-10.5)
[2018-03-23] MEDS: FERROUS SULFATE 325 MG TABLET PO SCH ×2 (10:12→17:28)
[2018-03-23] MEDS: SENNOSIDES/DOCUSATE 8.6-50 MG 1 EACH TABLET PO SCH (10:12)
[2018-03-23] MEDS: DOCUSATE SODIUM 100 MG CAPSULE PO SCH ×2 (10:13→17:28)
[2018-03-23] MEDS: PRENATAL VITAMIN W DHA CAPSULE PO SCH (10:13)
--- NOTE | 2018-03-23 10:29 | PDOC PROGRESS REPORT ---
Subjective-OB Progress Note for:: 03/23/18 Subjective: PP Day #1, doing well, no complaints, bottle feeding, A+, Rubella Immune. Hx of manual placental removal. Ancef 2 mg given. Physical Exam (OB) Vital Signs: Temp Pulse Resp BP Pulse Ox 98.8 F 95 18 123/76 97 03/23/18 07:45 03/23/18 07:45 03/23/18 07:45 03/23/18 07:45 03/23/18 07:45 Intake & Output 03/22/18 03/23/18 03/24/18 06:59 06:59 06:59 Intake Total 1000 1138 Balance 1000 1138 - General General Appearance: Appears well, Alert In distress: None - PIH/Pre-Eclampsia DTR's: 1 + Clonus: Negative Headache: Absent Epigastric Pain: No Visual Changes: No - Lochia Lochia Amount: Scant < 10 ml Lochia Color: Rubra/Red - Abdomen Description: Soft Hernia Present: No Fundal Description: Firm, Midline Fundal Height: u/u - u/2 - Respiratory Respiratory Status: No respiratory distress - Abdominal Inspection: Normal Distension: No distension - Genitourinary Genitourinary Note: voiding - Extremities Upper extremity: Normal inspection Lower extremities: Normal inspection - Neurological Cognition: Normal Orientation: AAOx4 - Psychological Associated symptoms: Normal affect, Normal mood - Skin Skin Temperature: Warm Skin Moisture: Dry Objective-Diagnostic Laboratory: 03/23/18 07:36 03/22/18 05:25 03/23/18 07:36 WBC 13.1 H RBC 3.22 L Hgb 9.4 L Hct 29.4 L MCV 91 MCH 29.3 MCHC 32.1 RDW 15.9 H Plt Count 249 Assessment and Plan(PN) - Assessment and Plan (1) Retained placenta or membranes without hemorrhage Is this a current diagnosis for this admission?: Yes (2) Obstetric vaginal laceration, delivered, current hospitalization Is this a current diagnosis for this admission?: Yes (3) Vaginal delivery Is this a current diagnosis for this admission?: Yes (4) Third trimester Is this a current diagnosis for this admission?: Yes - Time Spent with Patient Time with patient: Less than 15 minutes Medications reviewed and adjusted accordingly: Yes - Disposition Anticipated Discharge: Home Within: within 48 hours
[2018-03-24] MEDS: IBUPROFEN 800 MG TABLET PO SCH (05:04)
[2018-03-24] MEDS: PRENATAL VITAMIN W DHA CAPSULE PO SCH (09:31)
[2018-03-24] MEDS: FERROUS SULFATE 325 MG TABLET PO SCH (09:32)
[2018-03-24] MEDS: DOCUSATE SODIUM 100 MG CAPSULE PO SCH (09:32)
[2018-03-24] MEDS: SENNOSIDES/DOCUSATE 8.6-50 MG 1 EACH TABLET PO SCH (09:32)
--- NOTE | 2018-03-24 10:14 | PDOC PROGRESS REPORT ---
Subjective-OB Progress Note for:: 03/24/18 Subjective: Doing well, ready to go home, hsb and baby at bs Physical Exam (OB) Vital Signs: Temp Pulse Resp BP Pulse Ox 98.1 F 101 H 18 134/71 H 98 03/24/18 07:56 03/24/18 07:56 03/24/18 07:56 03/24/18 07:56 03/24/18 07:56 Intake & Output 03/23/18 03/24/18 03/25/18 06:59 06:59 06:59 Intake Total 1138 300 Balance 1138 300 - PIH/Pre-Eclampsia DTR's: 1 + Clonus: Negative Headache: Absent Epigastric Pain: No Visual Changes: No - Lochia Lochia Amount: Scant < 10 ml Lochia Color: Rubra/Red - Abdomen Description: Soft, Round Hernia Present: No Fundal Description: Firm, Midline Fundal Height: u/u - u/2 Objective-Diagnostic Laboratory: 03/23/18 07:36 03/22/18 05:25 Assessment and Plan(PN) - Assessment and Plan (1) Retained placenta or membranes without hemorrhage Is this a current diagnosis for this admission?: Yes (2) Obstetric vaginal laceration, delivered, current hospitalization Is this a current diagnosis for this admission?: Yes (3) Vaginal delivery Is this a current diagnosis for this admission?: Yes - Time Spent with Patient Time with patient: Less than 15 minutes Medications reviewed and adjusted accordingly: Yes - Disposition Anticipated Discharge: Home Within: within 24 hours
--- NOTE | 2018-03-24 10:19 | PDOC DISCHARGE SUMMARY ---
Final Diagnosis Discharge Date: 03/24/18 - Final Diagnosis (1) Retained placenta or membranes without hemorrhage Is this a current diagnosis for this admission?: Yes (2) Obstetric vaginal laceration, delivered, current hospitalization Is this a current diagnosis for this admission?: Yes (3) Vaginal delivery Is this a current diagnosis for this admission?: Yes Discharge Data - Discharge Medication Home Medications: Ferrous Sulfate [Feosol 325 mg Tablet] 650 mg PO DAILY 02/26/18 Metoprolol Tartrate [Lopressor 25 mg Tablet] 25 mg PO Q12 #60 tablet 02/26/18 Vit,Calc76/Iron/Folic [Prenatabs Rx Tablet] 1 tab PO DAILY 02/26/18 Gestational Age: 39 Reason(s) for Admission: Induction of Labor, PIH, Advanced Maternal Age, Group B Strep Positive Procedures: NST, Ultrasound Intrapartum Procedure(s): Spontaneous Vaginal Delivery Complication(s): Laceration-Vaginal Laceration-Degree: 1st - Wren Data Baby 1 Female at 1 minute: 8 at 5 minutes: 9 Weight: 3.6 kg Home with Mother: Yes Complications: No - Diagnosis Test Laboratory: Temp Pulse Resp BP Pulse Ox 98.1 F 101 H 18 134/71 H 98 03/24/18 07:56 03/24/18 07:56 03/24/18 07:56 03/24/18 07:56 03/24/18 07:56 03/20/18 03/20/18 03/22/18 18:10 18:30 05:25 RBC 3.47 L 3.53 L Hgb 10.3 L 10.3 L Hct 31.6 L 31.9 L Urine Opiates Screen NEGATIVE 03/23/18 07:36 RBC 3.22 L Hgb 9.4 L Hct 29.4 L Urine Opiates Screen - Discharge information/Instructions Discharge Activity: Activity As Tolerated, No Lifting Over 10 Pounds, No Lifting /Push/Pulling, Pelvic Rest Discharge Diet: As Tolerated, Regular Disposition: HOME, SELF-CARE Follow up with: [facility] in: 1, Weeks
[2018-03-24 11:33] VITALS: BP 134/71
== END 2018-03-24 12:48 | disposition home or self-care (01) | DRG 807 ==
LOC: LR 17:59 → 2S 03-22 15:40
PROVIDERS: ADMIT Obstetrics & Gynecology Gynecology; ATTEND Obstetrics & Gynecology
PROC: 3E0P7VZ Introduction of Hormone into Female Reproductive, Via Natural or Artificial Opening (ICD-10-PCS; 2018-03-20)
PROC: 4A1HXCZ Monitoring of Products of Conception, Cardiac Rate, External Approach (ICD-10-PCS; 2018-03-20)
PROC: 10E0XZZ Delivery of Products of Conception, External Approach (ICD-10-PCS; principal; 2018-03-22)
DX: O13.4 Gestational [pregnancy-induced] hypertension without significant proteinuria, complicating childbirth (principal); Z37.0 Single live birth; O70.0 First degree perineal laceration during delivery; O99.824 Streptococcus B carrier state complicating childbirth; Z3A.39 39 weeks gestation of pregnancy
CPT/HCPCS: 36415; 80053; 80307; 81005; 83615; 84550; 85025; 85027; 86592; 86850; 86900; 86901; 94760; J0690; J2210; J2370; J2540; J2590; J3010; J3490